=== PATIENT | female | born 1930 | race Caucasian/White ===

== ENCOUNTER 2017-04-15 19:46 | Emergency (ER) | payer OTHER ==
[~2017-04-15 19:46] MED LIST: MULTCAP2 OR
[2017-04-15 19:49] VITALS: BP 158/83; PULSE 79; RESP 20; TEMP 97.5; O2SAT 95
[2017-04-15] MEDS ORDERED: VITA200C3 PO (20:14)
[2017-04-15] MEDS ORDERED: CALC1TAB87 PO (20:14)
[2017-04-15] MEDS ORDERED: VITATAB43 PO (20:14)
[2017-04-15] MEDS ORDERED: ASPI81CH CHEW (20:14)
[2017-04-15] MEDS ORDERED: COQ150CA PO (20:14)
[2017-04-15] MEDS ORDERED: ALPR0.25 PO (20:14)
[2017-04-15] MEDS ORDERED: VITA100036 PO (20:14)
[2017-04-15] MEDS ORDERED: LISI10TA3 PO (20:14)
--- NOTE | 2017-04-15 21:26 | PD ---
HPI Chief Complaint: Abdominal Pain Time Seen by Provider: 21:19 Travel History International Travel<30 days: No Contact w/Intl Traveler<30days: No Traveled to known affect area: No History of Present Illness HPI The patient is an 86-year-old female that complains of pain slightly to the left of midline in the left lower quadrant. It started around 4 PM today. The pain is almost totally resolved now and the patient wants to go home. She denies any fever, nausea, vomiting or diarrhea. PFSH Past Medical History Anxiety: Yes Cancer: Yes (COLON WITH CHEMO TREATMENTS 1989) Chemotherapy: Yes Diminished Hearing: No Gastrointestinal Disorders: Yes (COLON CA IN 1995) Hypertension: Yes Influenza Vaccination: Yes Menopausal: Yes Past Surgical History Abdominal Surgery: Yes (COLON RESECTION LARGE AND SMALL BOWEL R/T CANCER) Cholecystectomy: Yes Other Surgery: Yes (FACIAL SURGERY R/T TRAUMA) Social History Alcohol Use: Yes (SOC) Tobacco Use: No (QUIT IN 1975) Substance Use: No Allergies-Medications (Allergen,Severity, Reaction): Coded Allergies: paroxetine (Unverified Allergy, Severe, GI DISTRESS, 03/29/17) sertraline (Unverified Allergy, Severe, GI DISTRESS, 03/29/17) Reported Meds & Prescriptions Reported Meds & Active Scripts Active Reported Calcium 600 with Vitamin D (Calcium Carbonate-Cholecalciferol) 600-400 mg-Unit Tab 600 Tab PO DAILY Coq10 (Coenzyme Q10 (Ubidecarenone)) 50 Mg Cap 50 Mg PO DAILY Vitamin E 200 Unit Cap 400 Units PO DAILY Vitamin W67-Gqkhg Acid (Cobalamine Combinations) 500-400 Mcg Tab 1 Tab PO DAILY Vitamin D3 (Cholecalciferol) 1,000 Unit Cap 1,000 Units PO DAILY Aspirin 81 Mg Chew 81 Mg CHEW DAILY Alprazolam 0.25 Mg Tab 0.25 Mg PO Q4H PRN Lisinopril 10 Mg Tab 10 Mg PO DAILY Review of Systems Except as stated in HPI: all other systems reviewed are Neg Physical Exam Narrative GENERAL: The patient is alert, oriented 3 in no apparent distress. Her vital signs show blood pressure 158/83 but are otherwise normal. SKIN: Focused skin assessment warm/dry. HEAD: Atraumatic. Normocephalic. EYES: Pupils equal and round. No scleral icterus. No injection or drainage. ENT: No nasal bleeding or discharge. Mucous membranes pink and moist. NECK: Trachea midline. No JVD. CARDIOVASCULAR: Regular rate and rhythm. No murmur appreciated. RESPIRATORY: No accessory muscle use. Clear to auscultation. Breath sounds equal bilaterally. GASTROINTESTINAL: Abdomen soft, with minimal discomfort to direct palpation slightly to the left of midline in the left lower quadrant, nondistended. Hepatic and splenic margins not palpable. No guarding or rebound is present. MUSCULOSKELETAL: No obvious deformities. No clubbing. No cyanosis. No edema. NEUROLOGICAL: Awake and alert. No obvious cranial nerve deficits. Motor grossly within normal limits. Normal speech. PSYCHIATRIC: Appropriate mood and affect; insight and judgment normal. Data Data Last Documented VS Vital Signs Date Time Temp Pulse Resp B/P (MAP) Pulse Ox O2 Delivery O2 Flow Rate FiO2 04/15/17 20:14 20 04/15/17 19:49 97.5 79 158/83 (108) 95 MDM Medical Decision Making Medical Screen Exam Complete: Yes Emergency Medical Condition: Yes Medical Record Reviewed: Yes Differential Diagnosis Intestinal colic, abdominal pain etiology undetermined, abdominal pain resolved , small bowel obstruction-unlikely, diverticulitis Narrative Course The patient wants to go home. She was offered a workup with CAT scan, blood work but she declined and says she wants to go home now because she feels so much better. Diagnosis Primary Impression: Abdominal pain of unknown etiology Additional Instructions: As we discussed, return immediately should you get a recurrent severe abdominal pain. This is particularly true if you get nausea/vomiting. Disposition: 01 DISCHARGE HOME Condition: Stable Juwan Lea MD Apr 15, 2017 21:25
[2017-04-15 21:37] VITALS: BP 123/71
== END 2017-04-15 21:39 | disposition home or self-care (01) ==
LOC: PHED 19:46
DX: R10.32 Left lower quadrant pain (principal); I10 Essential (primary) hypertension; Z85.038 Personal history of other malignant neoplasm of large intestine; Z86.59 Personal history of other mental and behavioral disorders
CPT/HCPCS: 99282

== ENCOUNTER 2017-10-16 20:40 | Inpatient (IN) | payer OTHER, MEDICARE ==
[~2017-10-16] VITALS: Ht 165.1 cm; Wt 70.4 kg
[~2017-10-16 20:40] MED LIST changes: +ALPR0.25 PO; +ASPI-516 CHEW; +CALC1TAB87 PO; +CHOL10008 PO; +COQ150CA PO; +LISI10TA3 PO; -MULTCAP2 OR; +VITA200C3 PO; +VITATAB43 PO
[2017-10-16 20:54] VITALS: BP 149/72; PULSE 71; RESP 18; TEMP 97.7; O2SAT 98
[2017-10-16] MEDS ORDERED: ASPI-516 CHEW (21:06)
[2017-10-16] MEDS ORDERED: SODIUM CHLORIDE 0.9% FLUSH 10 ML FLUSH IV FLUSH PRN (21:15)
[2017-10-16] MEDS ORDERED: MORPHINE SULFATE 4 MG/ML INJ IV PUSH ONE (21:15)
[2017-10-16] MEDS ORDERED: ONDANSETRON HCL 4 MG/2 ML VIAL IVP ONE (21:15)
[2017-10-16] MEDS ORDERED: LIDOCAINE VISCOUS 2% SOLN 15 ML UDC PO ONE (21:15)
[2017-10-16] MEDS ORDERED: ALUMINUM/MAGNESIUM/SIMETH 30 ML CUP PO ONE (21:15)
[2017-10-16] MEDS ORDERED: PANTOPRAZOLE SODIUM 40 MG VIAL IVP ONE (21:15)
[2017-10-16 21:27] LABS: AUTOMATED NEUTROPHIL # 7.9 TH/MM3 (1.8-7.7); BASOPHIL % 0.3 % (0.0-2.0); EOSINOPHIL % 0.4 % (0.0-4.0); HEMATOCRIT 39.7 % (35.0-46.0); HEMOGLOBIN 13.6 GM/DL (11.6-15.3); LYMPHOCYTE # 0.8 TH/MM3 (1.0-4.8); MEAN CELL VOLUME 95.5 FL (80.0-100.0); MEAN CORPUSCULAR HEMOGLOBIN 32.7 PG (27.0-34.0); MEAN CORPUSCULAR HGB CONC 34.3 % (32.0-36.0); MEAN PLATELET VOLUME 7.3 FL (7.0-11.0); MONO % 4.6 % (0.0-8.0); MONOCYTE # 0.4 TH/MM3 (0-0.9); NEUT % 85.7 % (16.0-70.0); PLATELET COUNT 243 TH/MM3 (150-450); RED BLOOD COUNT 4.16 MIL/MM3 (4.00-5.30); RED CELL DISTRIBUTION WIDTH 13.1 % (11.6-17.2); WHITE BLOOD COUNT 9.1 TH/MM3 (4.0-11.0)
[2017-10-16 21:30] VITALS: O2SAT 96
[2017-10-16 21:31] LABS: CHLORIDE 102 MEQ/L (98-107); SODIUM (NA) 137 MEQ/L (136-145)
[2017-10-16 21:34] LABS: CALCIUM 8.9 MG/DL (8.5-10.1)
[2017-10-16 21:35] LABS: BICARBONATE 27.9 MEQ/L (21.0-32.0); BLOOD UREA NITROGEN 14 MG/DL (7-18); GLUCOSE,RANDOM 112 MG/DL (74-106)
[2017-10-16 21:38] LABS: ALT (GPT) 17 U/L (10-53); AST (GOT) 19 U/L (15-37); CREATININE 0.88 MG/DL (0.50-1.00); GLOMERULAR FILTRATION RATE 61 ML/MIN (>89)
[2017-10-16 21:39] LABS: TOTAL BILIRUBIN ADULT 0.4 MG/DL (0.2-1.0); TOTAL PROTEIN 7.6 GM/DL (6.4-8.2)
[2017-10-16 21:40] LABS: ALKALINE PHOSPHATASE 96 U/L (45-117)
[2017-10-16 22:52] VITALS: BP 138/84; PULSE 73; RESP 16; O2SAT 95
[2017-10-16] MEDS ORDERED: IOHEXOL 350 MG/ML 10 ML VIAL (for RAD DIAG) IVCONTRAST ONE (22:55)
[2017-10-16 23:10] LABS: BILIRUBIN, URINE NEG (NEG); BLOOD, URINE TRACE (NEG); GLUCOSE,URINE NEG (NEG); KETONE, URINE NEG (NEG); NITRITE,URINE NEG (NEG); PH, URINE 5.5 (5.0-8.5); URINE COLOR YELLOW (YELLW/STRAW); URINE LEUKOCYTE ESTERASE NEG (NEG)
--- NOTE | 2017-10-16 23:10 | RADRPT ---
EXAM DATE/TIME: 10/16/2017 22:04 [facility] COMPARISON: No previous studies available for comparison. INDICATIONS : Evaluate for dissection. Chest pain. IV CONTRAST: 100 cc Omnipaque 350 (iohexol) IV RADIATION DOSE: 16.42 CTDIvol (mGy) MEDICAL HISTORY : Hypertension. Carcinoma, colon. SURGICAL HISTORY : Colon resection. ENCOUNTER: Initial ACUITY: 1 day PAIN SCALE: 10/10 LOCATION: chest Abdomen TECHNIQUE: Volumetric scanning was performed using a multi-row detector CT scanner. The data was post processed with a variety of visualization algorithms including full volume maximum intensity projection, multi -planar sliding thin slab reformation, curved planar reformation, and surface rendering techniques. Using automated exposure control and adjustment of the mA and/or kV according to patient size, radiat ion dose was kept as low as reasonably achievable to obtain optimal diagnostic quality images. DICOM format image data is available electronically for review and comparison. FINDINGS: LUNGS: There is no consolidation or pneumothorax. There is mild to moderate emphysema. No pleural fluid is p resent. MEDIASTINUM: The heart demonstrate no acute finding. There is coronary artery calcification. No lymphadenopathy is visualized. ABDOMEN: The liver demonstrates no focal lesion. There is mild intra-and extrahepatic bile duct dilatation thi s patient post cholecystectomy with clips in the gallbladder fossa. The adrenal glands, kidneys, sple en, and pancreas demonstrate no acute finding. There are small low-density lesions in the kidneys clive t are to small to characterize. Stomach is within normal limits. Degenerative is mildly dilated measu ring up to 3.3 cm with decompressed ileum. Terminal ileum and appendix are normal. There is colonic d iverticulosis. A small volume of free fluid is present within the pelvis. There is no free crit intra peritoneal air. Uterus demonstrates no acute finding. Urinary bladder demonstrates no abnormality. PELVIS: Pelvic structures demonstrate no acute finding. 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 Descending thoracic aorta is very tortuous wit h moderate atherosclerotic disease. No aneurysm is present. ABDOMINAL AORTA: The abdominal aorta demonstrates moderate to severe atherosclerotic disease and is tortuous and ectat ic measuring up to 3 cm. Major branches are patent. No aneurysm or dissection is present. PELVIC VESSELS: The internal iliac and external iliac vessels are patent without aneurysm or stenosis. CONCLUSION: 1. No dissection is present. 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 Aorta has a very tortuous course a nd is ectatic throughout with [id number] atherosclerotic disease. 2. There is mildly dilated jejunum and decompressed ileum. A specific transition point is not identif ied but is somewhere in the upper mid pelvis. There is no clinical history provided to suggest small bowel obstruction but suggest correlating with the clinical history. There is also a small volume of free fluid in the pelvis. Sven Geller MD on October 16, 2017 at 22:59 Board Certified Radiologist. This report was verified electronically.
[2017-10-16 23:26] LABS: SQUAMOUS EPITHELIAL CELL URINE 0-5 /hpf (0-5)
--- NOTE | 2017-10-17 | PD ---
HPI . GI complaint Chief Complaint: GI Complaint Time Seen by Provider: 20:58 Travel History International Travel<30 days: No Contact w/Intl Traveler<30days: No Traveled to known affect area: No History of Present Illness HPI A 7-year-old female with sudden onset low epigastric pain sharp constant and severe not radiating to the back or otherwise, no associated nausea vomiting, no diarrhea no recent melena or hematochezia, and no shortness of breath. Patient denies any chest pain or palpitations. Patient has history of having colon cancer status post resection of 36 cm of large bowel with reanastomosis with otherwise no issues and negative follow-up afterwards. Patient has not had any weight loss. PFSH Past Medical History Narrative Medical Past medical history reviewed Anxiety: Yes Cancer: Yes (COLON WITH CHEMO TREATMENTS 1989) Chemotherapy: Yes Diminished Hearing: No Gastrointestinal Disorders: Yes (COLON CA IN 1995) Hypertension: Yes Tetanus Vaccination: > 5 Years Influenza Vaccination: No Menopausal: Yes Past Surgical History Abdominal Surgery: Yes (COLON RESECTION LARGE AND SMALL BOWEL R/T CANCER) Cholecystectomy: Yes Other Surgery: Yes (FACIAL SURGERY R/T TRAUMA) Social History Alcohol Use: Yes (SOC) Tobacco Use: No (QUIT IN 1975) Substance Use: No Allergies-Medications (Allergen,Severity, Reaction): Coded Allergies: paroxetine (Unverified Allergy, Severe, GI DISTRESS, 10/16/17) sertraline (Unverified Allergy, Severe, GI DISTRESS, 10/16/17) Reported Meds & Prescriptions Reported Meds & Active Scripts Active Reported Aspirin 81 Mg Chew 81 Mg CHEW DAILY Calcium 600 with Vitamin D (Calcium Carbonate-Cholecalciferol) 600-400 mg-Unit Tab 600 Tab PO DAILY Coq10 (Coenzyme Q10 (Ubidecarenone)) 50 Mg Cap 50 Mg PO DAILY Vitamin E 200 Unit Cap 400 Units PO DAILY Vitamin T23-Odckb Acid (Cobalamine Combinations) 500-400 Mcg Tab 1 Tab PO DAILY Vitamin D3 (Cholecalciferol) 1,000 Unit Cap 1,000 Units PO DAILY Alprazolam 0.25 Mg Tab 0.25 Mg PO Q4H PRN Lisinopril 10 Mg Tab 10 Mg PO DAILY Narrative Medication Allergies and medications reviewed Review of Systems Except as stated in HPI: all other systems reviewed are Neg General / Constitutional: No: Fever Eyes: No: Visual changes HENT: No: Headaches Cardiovascular: No: Chest Pain or Discomfort Respiratory: No: Shortness of Breath Gastrointestinal: Positive: Abdominal Pain, No: Nausea, Vomiting, Hematemesis, Hematochezia Genitourinary: No: Urgency, Frequency, Dysuria, Hematuria, Flank Pain Musculoskeletal: No: Pain Skin: No Rash Neurologic: No: Weakness Psychiatric: No: Depression Endocrine: No: Polydipsia Hematologic/Lymphatic: No: Easy Bruising Physical Exam Narrative GENERAL: Awake and alert and oriented 3, patient is uncomfortable appearing but otherwise no acute distress vital signs afebrile normal in state SKIN: Warm and dry. Color is normal diaphoresis and pallor HEAD: Atraumatic. Normocephalic. EYES: Pupils equal and round. No scleral icterus. No injection or drainage. ENT: No nasal bleeding or discharge. Mucous membranes pink and moist. NECK: Trachea midline. No JVD. Supple nontender full range motion CARDIOVASCULAR: Regular rate and rhythm. S1-S2 no murmurs rubs gallops RESPIRATORY: No accessory muscle use. Clear to auscultation. Breath sounds equal bilaterally. GASTROINTESTINAL: Abdomen soft,-tender in periumbilical area mostly superiorly. No rebound or guarding, nondistended. Hepatic and splenic margins not palpable. MUSCULOSKELETAL: Extremities without clubbing, cyanosis, or edema. No obvious deformities. NEUROLOGICAL: Awake and alert. No obvious cranial nerve deficits. Motor grossly within normal limits. Five out of 5 muscle strength in the arms and legs. Normal speech. PSYCHIATRIC: Appropriate mood and affect; insight and judgment normal. Data Data Last Documented VS Vital Signs Date Time Temp Pulse Resp B/P (MAP) Pulse Ox O2 Delivery O2 Flow Rate FiO2 10/16/17 22:52 73 16 138/84 (102) 95 Room Air 10/16/17 20:54 97.7 Orders Orders Complete Blood Count With Diff (10/16/17 21:08) Comprehensive Metabolic Panel (10/16/17 21:08) Lipase (10/16/17 21:08) Lactic Acid (10/16/17 21:08) Prothrombin Time / Inr (Pt) (10/16/17 21:08) Act Partial Throm Time (Ptt) (10/16/17 21:08) Urinalysis - C+S If Indicated (10/16/17 21:08) Iv Access Insert/Monitor (10/16/17 21:08) Ecg Monitoring (10/16/17 21:08) Oximetry (10/16/17 21:08) Morphine Inj (Morphine Inj) (10/16/17 21:15) Ondansetron Inj (Zofran Inj) (10/16/17 21:15) Pantoprazole Inj (Protonix Inj) (10/16/17 21:15) Sodium Chloride 0.9% Flush (Ns Flush) (10/16/17 21:15) Electrocardiogram (10/16/17 21:08) Al-Mag Hy-Si 40-40-4 Mg/Ml Liq (Mag-Al P (10/16/17 21:15) Lidocaine 2% Viscous (Xylocaine 2% Visco (10/16/17 21:15) Cta Thor Abd Aorta W Iv C W3d (10/16/17 ) D-Dimer (10/16/17 21:40) Iohexol 350 Inj (Omnipaque 350 Inj) (10/16/17 22:55) Admit Order (Ed Use Only) (10/16/17 23:49) Consult General Surgery (10/16/17 ) Lactic Acid (10/16/17 23:51) Labs Laboratory Tests Test 10/16/17 21:20 10/16/17 21:44 10/16/17 23:00 White Blood Count 9.1 TH/MM3 Red Blood Count 4.16 MIL/MM3 Hemoglobin 13.6 GM/DL Hematocrit 39.7 % Mean Corpuscular Volume 95.5 FL Mean Corpuscular Hemoglobin 32.7 PG Mean Corpuscular Hemoglobin Concent 34.3 % Red Cell Distribution Width 13.1 % Platelet Count 243 TH/MM3 Mean Platelet Volume 7.3 FL Neutrophils (%) (Auto) 85.7 % Lymphocytes (%) (Auto) 9.0 % Monocytes (%) (Auto) 4.6 % Eosinophils (%) (Auto) 0.4 % Basophils (%) (Auto) 0.3 % Neutrophils # (Auto) 7.9 TH/MM3 Lymphocytes # (Auto) 0.8 TH/MM3 Monocytes # (Auto) 0.4 TH/MM3 Eosinophils # (Auto) 0.0 TH/MM3 Basophils # (Auto) 0.0 TH/MM3 CBC Comment DIFF FINAL Differential Comment Prothrombin Time 10.0 SEC Prothromb Time International Ratio 1.0 RATIO Activated Partial Thromboplast Time 26.7 SEC D-Dimer Quantitative (PE/DVT) 1.54 MG/L FEU Blood Urea Nitrogen 14 MG/DL Creatinine 0.88 MG/DL Random Glucose 112 MG/DL Total Protein 7.6 GM/DL Albumin 4.0 GM/DL Calcium Level 8.9 MG/DL Alkaline Phosphatase 96 U/L Aspartate Amino Transf (AST/SGOT) 19 U/L Alanine Aminotransferase (ALT/SGPT) 17 U/L Total Bilirubin 0.4 MG/DL Sodium Level 137 MEQ/L Potassium Level 3.9 MEQ/L Chloride Level 102 MEQ/L Carbon Dioxide Level 27.9 MEQ/L Anion Gap 7 MEQ/L Estimat Glomerular Filtration Rate 61 ML/MIN Lipase 275 U/L Lactic Acid Level 1.4 mmol/L Urine Collection Type CLEAN CATCH Urine Color YELLOW Urine Turbidity CLEAR Urine pH 5.5 Urine Specific [place] LESS/EQUAL 1.005 Urine Protein NEG mg/dL Urine Glucose (UA) NEG mg/dL Urine Ketones NEG mg/dL Urine Occult Blood TRACE Urine Nitrite NEG Urine Bilirubin NEG Urine Urobilinogen 0.2 MG/DL Urine Leukocyte Esterase NEG Urine RBC 4-9 /hpf Urine Squamous Epithelial Cells 0-5 /hpf Microscopic Urinalysis Comment CULT NOT INDICATED MDM Medical Decision Making Medical Screen Exam Complete: Yes Emergency Medical Condition: Yes Medical Record Reviewed: Yes Differential Diagnosis Epigastric pain, aortic dissection/aneurysm, gastritis, peptic ulcer, bowel obstruction, duodenitis, choledocholithiasis Narrative Course Secondary to patient's nature of her sudden onset of pain in severity and location, patient had static creatinine performed at a CT angiogram of thoracic and abdominal aorta which was resulted as no acute aortic dissection, mild aneurysmal dilatation, probably chronic with calcific/atherosclerotic disease noted. Patient also has incidental notation of multiple loops of small bowel/ jejunum at 3.2-3.3 cm consistent with partial small bowel obstruction with possible lead point and normal-size are collapsed terminal ileum. There is no obvious acute changes patient's reanastomosis site. Patient laboratory examination here, patient has an elevated d-dimer of unclear etiology, possibly representing history of cancer versus acute thrombo-embolic process. Lactic acid were added to patient's laboratory examinations to be followed for unlikely but possible ischemic bowel. EKG normal sinus rhythm at 69 bpm nonischemic intervals otherwise normal. No history of atrial fibrillation. Case discussed with Socorro DENG from hospitalist service, care plan developed. Admission for observation and repeat radiographic examinations of patient's partial small bowel obstruction with surgical consult ordered for the morning. N.p.o. IV fluids. NG tube discussed that this juncture not necessary patient has no nausea vomiting, no dilated proximal small bowel stomach or duodenum. Diagnosis Primary Impression: Small bowel obstruction Admitting Information Admitting Physician Requests: Observation Condition: Stable Ramon Abraham MD Oct 17, 2017 00:00
[2017-10-17] MEDS ORDERED: SODIUM CHLORIDE 0.9% FLUSH 10 ML FLUSH IV FLUSH PRN (00:15)
[2017-10-17] MEDS ORDERED: NALOXONE HCL 0.4 MG/ML AMP IV PUSH PRN (00:15)
[2017-10-17 00:36] VITALS: BP 104/67
[2017-10-17] MEDS: SODIUM CHLOR 0.9% 1000 ML INJ 1,000 ML IV SCH ×3 (01:01→20:02)
[2017-10-17] MEDS ORDERED: MORPHINE SULFATE 4 MG/ML INJ IV PUSH PRN (03:30)
[2017-10-17] MEDS: MORPHINE SULFATE 2 MG/ML INJ IV PUSH PRN ×2 (03:41→11:54)
[2017-10-17] MEDS: ONDANSETRON HCL 4 MG/2 ML VIAL IVP PRN ×2 (03:53→11:54)
[2017-10-17 08:00] VITALS: BP 132/60; PULSE 64; RESP 16; TEMP 98.4; O2SAT 95
[2017-10-17] MEDS: SODIUM CHLORIDE 0.9% FLUSH 10 ML FLUSH IV FLUSH SCH ×2 (09:00→21:00)
--- NOTE | 2017-10-17 09:01 | PD.CONS ---
cc: Eddy Majano MD [facility] Service General Surgery Consult Requested By Dr. Abraham Reason for Consult Small bowel obstruction Primary Care Physician Vanessa Martin Do, MD History of Present Illness This is an 87 year old female with a past medical history of colon cancer and resection with primary anastomosis in the late . She developed severe acute onset of epigastric abdominal pain that she rates a 10/10. She denies any nausea or vomiting. She denies any sick contacts. She denies any recent travel. Denies use of oral anticoagulation. A CTA of the abdomen was completed which shows a mildly dilated jejunum and a decompressed ileum. A General Surgery consultation has been requested for evaluation of a small bowel obstruction. Review of Systems Constitutional: DENIES: Fatigue, Chills, Change in appetite Endocrine: DENIES: Polydipsia, Polyuria, Polyphagia Eyes: DENIES: Diplopia, Eye inflammation Ears, nose, mouth, throat: DENIES: Hearing loss Respiratory: DENIES: Cough Cardiovascular: DENIES: Chest pain Gastrointestinal: COMPLAINS OF: Abdominal pain, DENIES: Nausea, Vomiting Genitourinary: DENIES: Dysmenorrhea, Urinary incontinence Musculoskeletal: DENIES: Muscle aches Integumentary: DENIES: Abnormal pigmentation Hematologic/lymphatic: DENIES: Bruising Immunologic/allergic: DENIES: Eczema Neurologic: DENIES: Abnormal gait, Headache Psychiatric: DENIES: Confusion, Mood changes, Depression Past Family Social History Past Medical History Colon cancer Past Surgical History Colon resection with primary anastomosis for colon cancer in the late Laparoscopic cholecystectomy in 2006 Reported Medications Lisinopril Aspirin Xanax Calcium Vitamin B12 Vitamin D Vitamin E Coenzyme Q10 Allergies: Coded Allergies: paroxetine (Unverified Allergy, Severe, GI DISTRESS, 10/16/17) sertraline (Unverified Allergy, Severe, GI DISTRESS, 10/16/17) Active Ordered Medications Current Medications Medications (Trade) Dose Ordered Sig/Luiz Route Start Time Stop Time Status Last Admin Sodium Chloride 1,000 ml @ 100 mls/hr Q10H IV 10/17/17 00:02 10/17/17 01:52 (NS Flush) 2 ml UNSCH PRN IV FLUSH 10/17/17 00:15 (NS Flush) 2 ml BID IV FLUSH 10/17/17 09:00 (Zofran Inj) 4 mg Q6H PRN IVP 10/17/17 00:15 10/17/17 03:53 (Narcan Inj) 0.4 mg UNSCH PRN IV PUSH 10/17/17 00:15 (Morphine Inj) 2 mg Q3H PRN IV PUSH 10/17/17 03:30 10/17/17 03:41 (Morphine Inj) 4 mg Q3H PRN IV PUSH 10/17/17 03:30 Family History Noncontributory Social History Denies tobacco use + ETOH use--- not daily; socially with friends Denies illicit drug Lives by herself. Physical Exam Vital Signs Vital Signs Date Time Temp Pulse Resp B/P (MAP) Pulse Ox O2 Delivery O2 Flow Rate FiO2 10/17/17 08:00 98.4 64 16 132/60 (84) 95 10/17/17 00:36 77 16 104/67 (79) 96 10/16/17 22:52 73 16 138/84 (102) 95 Room Air 10/16/17 21:30 96 Room Air 10/16/17 21:29 16 10/16/17 20:54 97.7 71 18 149/72 (97) 98 Physical Exam GENERAL: Very pleasant 87 year old female resting in bed in no acute distress. SKIN: Warm and dry. HEAD: Atraumatic. Normocephalic. EYES: Pupils equal and round. No scleral icterus. No injection or drainage. ENT: No nasal bleeding or discharge. Mucous membranes pink and moist. NECK: Trachea midline. CARDIOVASCULAR: Regular rate and rhythm. RESPIRATORY: No accessory muscle use. Clear to auscultation. Breath sounds equal bilaterally. GASTROINTESTINAL: Abdomen soft, mildly distended. Mild tenderness with LLQ and RLQ tenderness with palpation. Well healed large transverse scar. Faint umbilical scar from laparoscopic surgery. MUSCULOSKELETAL: Extremities without clubbing, cyanosis, or edema. No obvious deformities. NEUROLOGICAL: Awake and alert. No obvious cranial nerve deficits. Motor grossly within normal limits. Five out of 5 muscle strength in the arms and legs. Normal speech. PSYCHIATRIC: Appropriate mood and affect; insight and judgment normal. Laboratory Laboratory Tests Test 10/16/17 21:20 10/16/17 21:44 10/16/17 23:00 10/17/17 00:09 White Blood Count 9.1 Red Blood Count 4.16 Hemoglobin 13.6 Hematocrit 39.7 Mean Corpuscular Volume 95.5 Mean Corpuscular Hemoglobin 32.7 Mean Corpuscular Hemoglobin Concent 34.3 Red Cell Distribution Width 13.1 Platelet Count 243 Mean Platelet Volume 7.3 Neutrophils (%) (Auto) 85.7 Lymphocytes (%) (Auto) 9.0 Monocytes (%) (Auto) 4.6 Eosinophils (%) (Auto) 0.4 Basophils (%) (Auto) 0.3 Neutrophils # (Auto) 7.9 Lymphocytes # (Auto) 0.8 Monocytes # (Auto) 0.4 Eosinophils # (Auto) 0.0 Basophils # (Auto) 0.0 CBC Comment DIFF FINAL Differential Comment Prothrombin Time 10.0 Prothromb Time International Ratio 1.0 Activated Partial Thromboplast Time 26.7 D-Dimer Quantitative (PE/DVT) 1.54 Blood Urea Nitrogen 14 Creatinine 0.88 Random Glucose 112 Total Protein 7.6 Albumin 4.0 Calcium Level 8.9 Alkaline Phosphatase 96 Aspartate Amino Transf (AST/SGOT) 19 Alanine Aminotransferase (ALT/SGPT) 17 Total Bilirubin 0.4 Sodium Level 137 Potassium Level 3.9 Chloride Level 102 Carbon Dioxide Level 27.9 Anion Gap 7 Estimat Glomerular Filtration Rate 61 Lipase 275 Lactic Acid Level 1.4 1.0 Urine Collection Type CLEAN CATCH Urine Color YELLOW Urine Turbidity CLEAR Urine pH 5.5 Urine Specific [place] LESS/EQUAL 1.005 Urine Protein NEG Urine Glucose (UA) NEG Urine Ketones NEG Urine Occult Blood TRACE Urine Nitrite NEG Urine Bilirubin NEG Urine Urobilinogen 0.2 Urine Leukocyte Esterase NEG Urine RBC 4-9 Urine Squamous Epithelial Cells 0-5 Microscopic Urinalysis Comment CULT NOT INDICATED Result Diagram: 10/16/17211910/16/172119 Imaging Last 48 hours Impressions Aorta CTA 10/16/17 0000 Signed Impressions: Service Date/Time: Monday, October 16, 2017 22:04 - CONCLUSION: 1. No dissection is present. 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 Aorta has a very tortuous course and is ectatic throughout with [id number] atherosclerotic disease. 2. There is mildly dilated jejunum and decompressed ileum. A specific transition point is not identified but is somewhere in the upper mid pelvis. There is no clinical history provided to suggest small bowel obstruction but suggest correlating with the clinical history. There is also a small volume of free fluid in the pelvis. Sven Geller MD Assessment and Plan Assessment and Plan 87 year old female with abdominal pain; SBO -NPO -No NGT needed unless persistent nausea or vomiting -KUB this AM -Will get Gastrografin enema today -Repeat labs in AM -Will attempt non operative treatment at this time -Thank you for this consult; We will continue to follow Attending Note - Dr. Majano Abdomen mildly distended; minimally tender Gastrografin enema simply shows diverticulosis; no strictures No hernias noted Will start on clears in AM, as she was nauseated and had some emesis after test this afternoon. Last colonoscopy was 5 yrs ago; doubt she needs another due to lack of findings on GE. The exam, history, and the medical decision-making described in the above note were completed with the assistance of the mid-level provider. I reviewed and agree with the findings presented. I attest that I had a [id number] encounter with the patient on the same day, and personally performed and documented my assessment and findings in the medical record. Discussed Condition With Dr. Melecio ABARCA Ms. Monica Conner/Medical Staff Services Coordinator ARNP Oct 17, 2017 09:01 Eddy Majano MD Oct 17, 2017 20:40
--- NOTE | 2017-10-17 11:39 | RADRPT ---
EXAM DATE/TIME: 10/17/2017 11:15 [place] COMPARISON: CTA THORACIC ABDOMINAL AORTA W 3D RECON, October 16, 2017, 22:04. INDICATIONS : Obstruction MEDICAL HISTORY : Hypertension. Carcinoma, colon SURGICAL HISTORY : Colon resection ENCOUNTER: Initial ACUITY: 2 days PAIN SCORE: 4/10 LOCATION: Abdomen FINDINGS: Supine and upright views of the abdomen were performed. Ring of surgical saira in the left para midline pelvis is characteristic of prior bowel surgery. Th ere also surgical clips in the right upper abdominal quadrant characteristic of prior cholecystectomy . A few dilated small bowel loops are identified in the left abdomen. There are few scattered air-flu id levels on the upright image but the pattern is nonspecific. Stool is identified predominately in the ascending and proximal descending portions of the colon. No pneumoperitoneum. Osseous structures are intact CONCLUSION: 1. Postsurgical changes characteristic of a prior distal bowel resection and cholecystectomy. 2. Mildly dilated bowel loops in the left abdomen with a few scattered air-fluid levels. Stool is see n in the colon Pattern is nonspecific a but could represent a low-grade, partial small bowel structur e in a postsurgical patient. Nakul Patel MD on October 17, 2017 at 11:32 Board Certified Radiologist. This report was verified electronically.
[2017-10-17 12:00] VITALS: BP 126/69; PULSE 63; RESP 16; TEMP 98.6; O2SAT 95
[2017-10-17] MEDS ORDERED: ALPRAZolam 0.25 MG TAB PO PRN (13:15)
--- NOTE | 2017-10-17 13:22 | HHI.HP ---
[facility] Vanessa Martin Do, MD Admission Diagnosis Partial Small Bowel Obstruction Diagnoses: Chief Complaint: Abdominal pain and nausea Travel History International Travel<30 Days: No Contact w/Intl Traveler <30 Da: No Traveled to Known Affected Are: No History of Present Illness This patient is a very pleasant 87-year-old female with a history of colon resection due to colon cancer some years ago. Patient has been in her usual state of health when she experienced acute episode of severe abdominal discomfort Which was sharp but nonradiating. It was associated with nausea but no vomiting. She had no intestinal diarrhea or melena or hematemesis. She has noted that the symptoms started shortly after she started some diclofenac which was given for arthritic pain. She since has stopped the diclofenac when she felt badly with it and then began having more intestinal symptoms. She did come to the emergency room and her abdominal discomfort was improved with IV morphine. Patient's been admitted for small bowel obstruction which is seen clinically as well as on imaging studies. Review of Systems Constitutional: DENIES: Diaphoretic episodes, Fatigue, Fever, Weight gain, Weight loss, Chills, Dizziness, Change in appetite, Night Sweats Endocrine: DENIES: Abnorml menstrual pattern, Heat/cold intolerance, Polydipsia , Polyuria, Polyphagia Eyes: DENIES: Blurred vision, Diplopia, Eye inflammation, Eye pain, Vision loss , Photosensitivity, Double Vision Ears, nose, mouth, throat: DENIES: Tinnitus, Hearing loss, Vertigo, Nasal discharge, Oral lesions, Throat pain, Hoarseness, Ear Pain, Running Nose, Epistaxis, Sinus Pain, Toothache, Odynophagia Respiratory: DENIES: Apneas, Cough, Snoring, Wheezing, Hemoptysis, Sputum production, Shortness of breath Cardiovascular: DENIES: Chest pain, Palpitations, Syncope, Dyspnea on Exertion , PND, Lower Extremity Edema, Orthopnea, Claudication Gastrointestinal: COMPLAINS OF: Abdominal pain, Anorexia, DENIES: Black stools , Bloody stools, Constipation, Diarrhea, Nausea, Vomiting, Difficulty Swallowing Genitourinary: DENIES: Abnormal vaginal bleeding, Dysmenorrhea, Dyspareunia, Sexual dysfunction, Urinary frequency, Urinary incontinence, Urgency, Hematuria , Dysuria, Nocturia, Vaginal discharge Musculoskeletal: COMPLAINS OF: Joint pain, DENIES: Muscle aches, Stiffness, Joint Swelling, Back pain, Neck pain Integumentary: DENIES: Abnormal pigmentation, Pruritus, Rash, Nail changes, Breast masses, Breast skin changes, Nipple discharge Hematologic/lymphatic: DENIES: Bruising, Lymphadenopathy Immunologic/allergic: DENIES: Eczema, Urticaria Neurologic: DENIES: Abnormal gait, Headache, Localized weakness, Paresthesias, Seizures, Speech Problems, Tremor, Poor Balance Psychiatric: DENIES: Anxiety, Confusion, Mood changes, Depression, Hallucinations, Agitation, Suicidal Ideation, Homicidal Ideation, Delusions Past Family Social History Past Medical History Hypertension Anxiety History of colon cancer Past Surgical History Status post colon resection and chemo Reported Medications Reviewed in the EMR, recently was started on diclofenac but discontinued because she had some dyspepsia Allergies: Coded Allergies: paroxetine (Unverified Allergy, Severe, GI DISTRESS, 10/16/17) sertraline (Unverified Allergy, Severe, GI DISTRESS, 10/16/17) Active Ordered Medications Reviewed in the EMR Family History Mother from a stroke, father's history is unknown Social History Quit tobacco over 40 years ago, alcohol socially, lives alone but is very active Physical Exam Vital Signs Vital Signs Date Time Temp Pulse Resp B/P (MAP) Pulse Ox O2 Delivery O2 Flow Rate FiO2 10/17/17 12:00 98.6 63 16 126/69 (88) 95 10/17/17 08:00 98.4 64 16 132/60 (84) 95 10/17/17 00:36 77 16 104/67 (79) 96 10/16/17 22:52 73 16 138/84 (102) 95 Room Air 10/16/17 21:30 96 Room Air 10/16/17 21:29 16 10/16/17 20:54 97.7 71 18 149/72 (97) 98 Physical Exam GENERAL: This is a well-nourished, well-developed patient, in no apparent distress. SKIN: No rashes, ecchymoses or lesions. Cool and dry. HEAD: Atraumatic. Normocephalic. No temporal or scalp tenderness. EYES: Pupils equal round and reactive. Extraocular motions intact. No scleral icterus. No injection or drainage. ENT: Nose without bleeding, purulent drainage or septal hematoma. Throat without erythema, tonsillar hypertrophy or exudate. Uvula midline. Airway patent. NECK: Trachea midline. No JVD or lymphadenopathy. Supple, nontender, no meningeal signs. CARDIOVASCULAR: Regular rate and rhythm without murmurs, gallops, or rubs. RESPIRATORY: Clear to auscultation. Breath sounds equal bilaterally. No wheezes , rales, or rhonchi. GASTROINTESTINAL: Abdomen soft, tender and mildly distended with hypoactive bowel sounds nded. No hepato-splenomegaly, or palpable masses. No guarding. MUSCULOSKELETAL: Extremities without clubbing, cyanosis, or edema. No joint tenderness, effusion, or edema noted. No calf tenderness. Negative Homans sign bilaterally. NEUROLOGICAL: Awake and alert. Cranial nerves II through XII intact. Motor and sensory grossly within normal limits. Five out of 5 muscle strength in all muscle groups. Normal speech. Laboratory Laboratory Tests Test 10/16/17 21:20 10/16/17 21:44 10/16/17 23:00 10/17/17 00:09 White Blood Count 9.1 Red Blood Count 4.16 Hemoglobin 13.6 Hematocrit 39.7 Mean Corpuscular Volume 95.5 Mean Corpuscular Hemoglobin 32.7 Mean Corpuscular Hemoglobin Concent 34.3 Red Cell Distribution Width 13.1 Platelet Count 243 Mean Platelet Volume 7.3 Neutrophils (%) (Auto) 85.7 Lymphocytes (%) (Auto) 9.0 Monocytes (%) (Auto) 4.6 Eosinophils (%) (Auto) 0.4 Basophils (%) (Auto) 0.3 Neutrophils # (Auto) 7.9 Lymphocytes # (Auto) 0.8 Monocytes # (Auto) 0.4 Eosinophils # (Auto) 0.0 Basophils # (Auto) 0.0 CBC Comment DIFF FINAL Differential Comment Prothrombin Time 10.0 Prothromb Time International Ratio 1.0 Activated Partial Thromboplast Time 26.7 D-Dimer Quantitative (PE/DVT) 1.54 Blood Urea Nitrogen 14 Creatinine 0.88 Random Glucose 112 Total Protein 7.6 Albumin 4.0 Calcium Level 8.9 Alkaline Phosphatase 96 Aspartate Amino Transf (AST/SGOT) 19 Alanine Aminotransferase (ALT/SGPT) 17 Total Bilirubin 0.4 Sodium Level 137 Potassium Level 3.9 Chloride Level 102 Carbon Dioxide Level 27.9 Anion Gap 7 Estimat Glomerular Filtration Rate 61 Lipase 275 Lactic Acid Level 1.4 1.0 Urine Collection Type CLEAN CATCH Urine Color YELLOW Urine Turbidity CLEAR Urine pH 5.5 Urine Specific [place] LESS/EQUAL 1.005 Urine Protein NEG Urine Glucose (UA) NEG Urine Ketones NEG Urine Occult Blood TRACE Urine Nitrite NEG Urine Bilirubin NEG Urine Urobilinogen 0.2 Urine Leukocyte Esterase NEG Urine RBC 4-9 Urine Squamous Epithelial Cells 0-5 Microscopic Urinalysis Comment CULT NOT INDICATED Result Diagram: 10/16/17211910/16/172119 Imaging Last Impressions Abdomen X-Ray 10/17/17 0736 Signed Impressions: Service Date/Time: Tuesday, October 17, 2017 11:15 - CONCLUSION: 1. Postsurgical changes characteristic of a prior distal bowel resection and cholecystectomy. 2. Mildly dilated bowel loops in the left abdomen with a few scattered air-fluid levels. Stool is seen in the colon Pattern is nonspecific a but could represent a low-grade, partial small bowel structure in a postsurgical patient. Nakul Patel MD Aorta CTA 10/16/17 0000 Signed Impressions: Service Date/Time: Monday, October 16, 2017 22:04 - CONCLUSION: 1. No dissection is present. 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 Aorta has a very tortuous course and is ectatic throughout with [id number] atherosclerotic disease. 2. There is mildly dilated jejunum and decompressed ileum. A specific transition point is not identified but is somewhere in the upper mid pelvis. There is no clinical history provided to suggest small bowel obstruction but suggest correlating with the clinical history. There is also a small volume of free fluid in the pelvis. Sven Geller MD Caprini VTE Risk Assessment Caprini VTE Risk Assessment: Mod/High Risk (score >= 2) Caprini Risk Assessment Model Point Value = 1 Point Value = 2 Point Value = 3 Point Value = 5 Age 41-60 Minor surgery BMI > 25 kg/m2 Swollen legs Varicose veins or History of unexplained or recurrent spontaneous Oral contraceptives or hormone replacement Sepsis (< 1 month) Serious lung disease, including pneumonia (< 1 month) Abnormal pulmonary function Acute myocardial infarction Congestive heart failure (< 1 month) History of inflammatory bowel disease Medical patient at bed rest Age 61-74 Arthroscopic surgery Major open surgery (> 45 min) Laparoscopic surgery (> 45 min) Malignancy Confined to bed (> 72 hours) Immobilizing plaster cast Central venous access Age >= 75 History of VTE Family history of VTE Factor V Leiden Prothrombin [id number] Lupus anticoagulant Anticardiolipin antibodies Elevated serum homocysteine Heparin-induced thrombocytopenia Other congenital or acquired thrombophilia Stroke (< 1 month) Elective arthroplasty Hip, pelvis, or leg fracture Acute spinal cord injury (< 1 month) Prophylaxis Regimen Total Risk Factor Score Risk Level Prophylaxis Regimen 0-1 Low Early ambulation 2 Moderate Order ONE of the following: *Sequential Compression Device (SCD) *Heparin 5000 units SQ BID 3-4 Higher Order ONE of the following medications: *Heparin 5000 units SQ TID *Enoxaparin/Lovenox 40 mg SQ daily (WT < 150 kg, CrCl > 30 mL/min) *Enoxaparin/Lovenox 30 mg SQ daily (WT < 150 kg, CrCl > 10-29 mL/min) *Enoxaparin/Lovenox 30 mg SQ BID (WT < 150 kg, CrCl > 30 mL/min) AND/OR *Sequential Compression Device (SCD) 5 or more Highest Order ONE of the following medications: *Heparin 5000 units SQ TID (Preferred with Epidurals) *Enoxaparin/Lovenox 40 mg SQ daily (WT < 150 kg, CrCl > 30 mL/min) *Enoxaparin/Lovenox 30 mg SQ daily (WT < 150 kg, CrCl > 10-29 mL/min) *Enoxaparin/Lovenox 30 mg SQ BID (WT < 150 kg, CrCl > 30 mL/min) AND *Sequential Compression Device (SCD) Assessment and Plan Problem List: (1) HTN (hypertension) ICD Code: I10 - Essential (primary) hypertension Plan: Continue home lisinopril (2) Small bowel obstruction ICD Code: K56.609 - Unspecified intestinal obstruction, unspecified as to partial versus complete obstruction Status: Acute Plan: continue n.p.o. except ice, follow-up a.m. x-ray General surgery consult appreciated Pain management with IV morphine (3) AAA (abdominal aortic aneurysm) ICD Code: I71.4 - Abdominal aortic aneurysm, without rupture Plan: Seen on imaging, patient is now aware and will need follow-up as an outpatient Assessment and Plan Discharge home pending return of bowel function Patient to see Dr. Mosley colorectal surgery Code Status full code Physician Certification 2 Midnight Certification Type: Admission for Inpatient Services Order for Inpatient Services The services are ordered in accordance with Medicare regulations or non- Medicare payer requirements, as applicable. In the case of services not specified as inpatient-only, they are appropriately provided as inpatient services in accordance with the 2-midnight benchmark. Estimated LOS (days): 3 3 days is the estimated time the patient will need to remain in the hospital, assuming treatment plan goals are met and no additional complications. Post-Hospital Plan: Home Tami Garcia MD Oct 17, 2017 13:22
[2017-10-17] MEDS: HEPARIN SODIUM - SQ 10,000 UNITS/ML VIAL SQ SCH ×2 (14:00→21:43)
[2017-10-17] MEDS ORDERED: DIATRIZOATE MEGLUM/DIATRIZOATE SOD 120 ML BTL (for RAD DIAG) RECTAL ONE (16:10)
[2017-10-17 20:00] VITALS: BP 129/67; PULSE 69; RESP 20; TEMP 99.5; O2SAT 94
[2017-10-18] VITALS: BP 127/68; PULSE 69; RESP 18; TEMP 98.1; O2SAT 96
[2017-10-18] MEDS: SODIUM CHLOR 0.9% 1000 ML INJ 1,000 ML IV SCH (04:23)
[2017-10-18] MEDS: HEPARIN SODIUM - SQ 10,000 UNITS/ML VIAL SQ SCH ×3 (05:49→23:04)
[2017-10-18 06:42] LABS: AUTOMATED NEUTROPHIL # 5.2 TH/MM3 (1.8-7.7); BASOPHIL % 0.1 % (0.0-2.0); EOSINOPHIL # 0.1 TH/MM3 (0-0.4); EOSINOPHIL % 1.5 % (0.0-4.0); HEMATOCRIT 34.1 % (35.0-46.0); HEMOGLOBIN 12.2 GM/DL (11.6-15.3); LYMPHOCYTE # 0.7 TH/MM3 (1.0-4.8); MEAN CELL VOLUME 96.1 FL (80.0-100.0); MEAN CORPUSCULAR HEMOGLOBIN 34.5 PG (27.0-34.0); MEAN CORPUSCULAR HGB CONC 35.9 % (32.0-36.0); MEAN PLATELET VOLUME 7.7 FL (7.0-11.0); MONO % 7.1 % (0.0-8.0); MONOCYTE # 0.5 TH/MM3 (0-0.9); NEUT % 80.3 % (16.0-70.0); PLATELET COUNT 204 TH/MM3 (150-450); RED BLOOD COUNT 3.55 MIL/MM3 (4.00-5.30); RED CELL DISTRIBUTION WIDTH 13.3 % (11.6-17.2); WHITE BLOOD COUNT 6.5 TH/MM3 (4.0-11.0)
[2017-10-18 07:16] LABS: BICARBONATE 27.9 MEQ/L (21.0-32.0); CALCIUM 8.2 MG/DL (8.5-10.1); CREATININE 0.84 MG/DL (0.50-1.00)
[2017-10-18 08:00] VITALS: BP 123/71; PULSE 67; RESP 16; TEMP 99; O2SAT 96
--- NOTE | 2017-10-18 08:07 | HHI.PR ---
cc: Ap Major MD Subjective Subjective Notes DAILY PROGRESS NOTE FOR SURGICAL ATTENDING, DR. AP MAJOR Resting in bed "I feel so much better than yesterday!" Objective Vitals/I&O Vital Signs Date Time Temp Pulse Resp B/P (MAP) Pulse Ox O2 Delivery O2 Flow Rate FiO2 10/18/17 00:00 98.1 69 18 127/68 (87) 96 10/16/17 22:52 Room Air Labs Laboratory Tests Test 10/18/17 06:00 White Blood Count 6.5 Red Blood Count 3.55 Hemoglobin 12.2 Hematocrit 34.1 Mean Corpuscular Volume 96.1 Mean Corpuscular Hemoglobin 34.5 Mean Corpuscular Hemoglobin Concent 35.9 Red Cell Distribution Width 13.3 Platelet Count 204 Mean Platelet Volume 7.7 Neutrophils (%) (Auto) 80.3 Lymphocytes (%) (Auto) 11.0 Monocytes (%) (Auto) 7.1 Eosinophils (%) (Auto) 1.5 Basophils (%) (Auto) 0.1 Neutrophils # (Auto) 5.2 Lymphocytes # (Auto) 0.7 Monocytes # (Auto) 0.5 Eosinophils # (Auto) 0.1 Basophils # (Auto) 0.0 CBC Comment DIFF FINAL Differential Comment Blood Urea Nitrogen 19 Creatinine 0.84 Random Glucose 101 Calcium Level 8.2 Sodium Level 142 Potassium Level 3.9 Chloride Level 108 Carbon Dioxide Level 27.9 Anion Gap 6 Estimat Glomerular Filtration Rate 64 Radiology Last Impressions Abdomen X-Ray 10/17/17 0736 Signed Impressions: Service Date/Time: Tuesday, October 17, 2017 11:15 - CONCLUSION: 1. Postsurgical changes characteristic of a prior distal bowel resection and cholecystectomy. 2. Mildly dilated bowel loops in the left abdomen with a few scattered air-fluid levels. Stool is seen in the colon Pattern is nonspecific a but could represent a low-grade, partial small bowel structure in a postsurgical patient. Nakul Patel MD Aorta CTA 10/16/17 0000 Signed Impressions: Service Date/Time: Monday, October 16, 2017 22:04 - CONCLUSION: 1. No dissection is present. 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 Aorta has a very tortuous course and is ectatic throughout with mgsqvcaf-qb-rifjvf atherosclerotic disease. 2. There is mildly dilated jejunum and decompressed ileum. A specific transition point is not identified but is somewhere in the upper mid pelvis. There is no clinical history provided to suggest small bowel obstruction but suggest correlating with the clinical history. There is also a small volume of free fluid in the pelvis. Sven Geller MD Cardiovascular: Regular Lungs: Clear Abdomen: Non-distended, Non-tender Extremities: No edema A/P Problem List: (1) Ileus ICD Codes: K56.7 - Ileus, unspecified Status: Chronic (2) AAA (abdominal aortic aneurysm) ICD Codes: I71.4 - Abdominal aortic aneurysm, without rupture (3) HTN (hypertension) ICD Codes: I10 - Essential (primary) hypertension Status: Chronic Assessment and Plan 87 year old female with abdominal pain; SBO -s/p Gastrografin enema -+BM -Abdominal exam benign -Start sips of clears liquids this AM -Will continue non operative treatment Attending Statement NOTE FOR SURGICAL ATTENDING, DR. AP MAJOR Patient seen and examined Abdomen soft Had 4 bowel movements this morning Tolerating diet Anticipate discharge next 24-48 hours I agree with above assessment and plan. The exam, history, and the medical decision-making described in the above note were completed with the assistance of the mid-level provider. I reviewed and agree with the findings presented. I attest that I had a zyjk-yq-wksm encounter with the patient on the same day, and personally performed and documented my assessment and findings in the medical record. The following services were provided during this hospital visit: Chart data review, vital sign assessments/reviewing monitor data Review of consultations notes if present. Medication orders/review and/or management Ordering and/or reviewing lab tests Ordering and/or interpreting/reviewing x-rays and/or diagnostic studies Care of the patient and discussion of the patient with the care team Documentation time To help prompt me to consider important information that might be impacting today's encounter and assessment, information from prior notes written by myself or my colleagues may have been "brought forward/copy and pasted" into today's note. Monica Martinez/First Yesika CASH Oct 18, 2017 08:07 Ap Major MD Oct 18, 2017 19:18
--- NOTE | 2017-10-18 09:44 | HHI.PR ---
Subjective Remarks Follow-up abdominal pain small bowel obstruction. Patient seen and examined, walking from bathroom to bed. Denies any distress overnight. Has been tolerating clear liquids, denies any nausea this morning. One bout of vomiting overnight. Positive bowel movement today. Pain controlled. Objective Vitals Vital Signs Date Time Temp Pulse Resp B/P (MAP) Pulse Ox O2 Delivery O2 Flow Rate FiO2 10/18/17 00:00 98.1 69 18 127/68 (87) 96 10/17/17 20:00 99.5 69 20 129/67 (87) 94 10/17/17 12:00 98.6 63 16 126/69 (88) 95 10/17/17 11:59 20 I/O 10/17/17 10/17/17 10/17/17 10/18/17 10/18/17 10/18/17 07:00 15:00 23:00 07:00 15:00 23:00 Intake Total 362 ml 0 ml 1720 ml Balance 362 ml 0 ml 1720 ml Intake Oral 0 ml 720 ml IV Total 362 ml 1000 ml # Voids 1 3 # Bowel Movements 1 0 Result Diagram: 10/18/17 0600 10/18/17 0600 Imaging Last Impressions Abdomen X-Ray 10/17/17 0736 Signed Impressions: Service Date/Time: Tuesday, October 17, 2017 11:15 - CONCLUSION: 1. Postsurgical changes characteristic of a prior distal bowel resection and cholecystectomy. 2. Mildly dilated bowel loops in the left abdomen with a few scattered air-fluid levels. Stool is seen in the colon Pattern is nonspecific a but could represent a low-grade, partial small bowel structure in a postsurgical patient. Nakul Patel MD Aorta CTA 10/16/17 0000 Signed Impressions: Service Date/Time: Monday, October 16, 2017 22:04 - CONCLUSION: 1. No dissection is present. 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 Aorta has a very tortuous course and is ectatic throughout with hklkaxop-te-egwhql atherosclerotic disease. 2. There is mildly dilated jejunum and decompressed ileum. A specific transition point is not identified but is somewhere in the upper mid pelvis. There is no clinical history provided to suggest small bowel obstruction but suggest correlating with the clinical history. There is also a small volume of free fluid in the pelvis. Sven Geller MD Objective Remarks GENERAL: Well-developed, well-nourished patient in NAD. SKIN: Warm and dry. No rash. HEAD: Normocephalic. Atraumatic. EYES: Pupils equal and round. No scleral icterus. No injection or drainage. ENT: No nasal bleeding or discharge. Mucous membranes pink and moist. NECK: Supple. Trachea midline. CARDIOVASCULAR: Regular rate and rhythm. S1, S2 noted. No murmur appreciated. RESPIRATORY: No accessory muscle use. Clear to auscultation. Breath sounds equal bilaterally. GASTROINTESTINAL: Abdomen soft, non-tender, nondistended. Normoactive bowel sounds x4. MUSCULOSKELETAL: No obvious deformities. Extremities without clubbing, cyanosis , or edema. NEUROLOGICAL: Awake and alert. No obvious cranial nerve deficits. Motor grossly within normal limits. 5/5 muscle strength in bilateral upper and lower extremities. Normal speech. A/P Problem List: (1) HTN (hypertension) ICD Code: I10 - Essential (primary) hypertension Plan: Continue home lisinopril (2) Small bowel obstruction ICD Code: K56.609 - Unspecified intestinal obstruction, unspecified as to partial versus complete obstruction Status: Acute Plan: Okay for clear liquids today. Monitor response. Control nausea, Zofran available. General surgery consult appreciated in following. We will continue nonoperative treatment for now. Positive bowel movement. Pain management with IV morphine. (3) AAA (abdominal aortic aneurysm) ICD Code: I71.4 - Abdominal aortic aneurysm, without rupture Plan: Seen on imaging, patient is now aware and will need follow-up as an outpatient. DVT prophylaxis: Heparin. Heidy Lopez Oct 18, 2017 09:44
[2017-10-18] MEDS: SODIUM CHLORIDE 0.9% FLUSH 10 ML FLUSH IV FLUSH SCH ×2 (09:56→23:05)
[2017-10-18] MEDS: LISINOPRIL 10 MG TAB PO SCH (09:56)
[2017-10-18 12:00] VITALS: BP 135/79; PULSE 76; RESP 18; TEMP 96.2; O2SAT 95
[2017-10-18] MEDS: ONDANSETRON HCL 4 MG/2 ML VIAL IVP PRN (14:52)
[2017-10-18 16:00] VITALS: BP_SYST 129; BP_SYST 130; BP_DIAS 76; BP_DIAS 83; PULSE 71; RESP 16; TEMP 98.5; O2SAT 95; O2SAT 96
[2017-10-18 20:00] VITALS: BP 123/64; PULSE 65; RESP 20; TEMP 98.1; O2SAT 94
[2017-10-19] VITALS: BP 106/59; PULSE 59; RESP 20; TEMP 97.9; O2SAT 94
[2017-10-19] MEDS: HEPARIN SODIUM - SQ 10,000 UNITS/ML VIAL SQ SCH (05:19)
--- NOTE | 2017-10-19 07:48 | HHI.DCPOC ---
Discharge Care Plan Diagnosis: (1) Small bowel obstruction (2) Ileus (3) HTN (hypertension) Goals to Promote Your Health * To prevent worsening of your condition and complications * To maintain your health at the optimal level Directions to Meet Your Goals Take your medications as prescribed Follow your dietary instruction Follow activity as directed Keep your appointments as scheduled Take your immunizations and boosters as scheduled If your symptoms worsen call your PCP, if no PCP go to Urgent Care Center or Emergency Room Smoking is Dangerous to Your Health. Avoid second hand smoke Call the 24-hour hour crisis hotline for domestic abuse at Heidy Lopez Oct 19, 2017 07:48
--- NOTE | 2017-10-19 07:48 | HHI.DS ---
Discharge Summary Admission Date Oct 17, 2017 at 00:07 Admitting Diagnosis Partial Small Bowel Obstruction (1) HTN (hypertension) ICD Codes: I10 - Essential (primary) hypertension Status: Chronic (2) Small bowel obstruction ICD Codes: K56.609 - Unspecified intestinal obstruction, unspecified as to partial versus complete obstruction Status: Acute (3) AAA (abdominal aortic aneurysm) ICD Codes: I71.4 - Abdominal aortic aneurysm, without rupture CBC/BMP: 10/18/17 0600 10/18/17 0600 Significant Findings Laboratory Tests Test 10/16/17 21:20 10/16/17 21:44 10/16/17 23:00 10/17/17 00:09 Neutrophils (%) (Auto) 85.7 % (16.0-70.0) Neutrophils # (Auto) 7.9 TH/MM3 (1.8-7.7) Lymphocytes # (Auto) 0.8 TH/MM3 (1.0-4.8) D-Dimer Quantitative (PE/DVT) 1.54 MG/L FEU (0.00-0.50) Random Glucose 112 MG/DL (74-106) Estimat Glomerular Filtration Rate 61 ML/MIN (>89) Urine RBC 4-9 /hpf (0-3) Test 10/18/17 06:00 Red Blood Count 3.55 MIL/MM3 (4.00-5.30) Hematocrit 34.1 % (35.0-46.0) Mean Corpuscular Hemoglobin 34.5 PG (27.0-34.0) Neutrophils (%) (Auto) 80.3 % (16.0-70.0) Lymphocytes # (Auto) 0.7 TH/MM3 (1.0-4.8) Blood Urea Nitrogen 19 MG/DL (7-18) Calcium Level 8.2 MG/DL (8.5-10.1) Chloride Level 108 MEQ/L (98-107) Estimat Glomerular Filtration Rate 64 ML/MIN (>89) Heidy Lopez Oct 19, 2017 07:48
[2017-10-19 08:00] VITALS: BP 119/77; PULSE 58; RESP 16; TEMP 97.2; O2SAT 95
--- NOTE | 2017-10-19 08:24 | HHI.PR ---
cc: Eddy Majano MD Subjective Subjective Notes Resting in bed Ready to go home Feels strong Objective Vitals/I&O Vital Signs Date Time Temp Pulse Resp B/P (MAP) Pulse Ox O2 Delivery O2 Flow Rate FiO2 10/19/17 00:00 97.9 59 20 106/59 (75) 94 10/16/17 22:52 Room Air Radiology Last Impressions Abdomen X-Ray 10/17/17 0736 Signed Impressions: Service Date/Time: Tuesday, October 17, 2017 11:15 - CONCLUSION: 1. Postsurgical changes characteristic of a prior distal bowel resection and cholecystectomy. 2. Mildly dilated bowel loops in the left abdomen with a few scattered air-fluid levels. Stool is seen in the colon Pattern is nonspecific a but could represent a low-grade, partial small bowel structure in a postsurgical patient. Nakul Patel MD Aorta CTA 10/16/17 0000 Signed Impressions: Service Date/Time: Monday, October 16, 2017 22:04 - CONCLUSION: 1. No dissection is present. 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 Aorta has a very tortuous course and is ectatic throughout with afrcxaql-[id number]-gsclyl atherosclerotic disease. 2. There is mildly dilated jejunum and decompressed ileum. A specific transition point is not identified but is somewhere in the upper mid pelvis. There is no clinical history provided to suggest small bowel obstruction but suggest correlating with the clinical history. There is also a small volume of free fluid in the pelvis. Sven Geller MD Cardiovascular: Regular Lungs: Clear Abdomen: Non-distended, Non-tender Extremities: No edema A/P Problem List: (1) Ileus ICD Codes: K56.7 - Ileus, unspecified Status: Chronic (2) AAA (abdominal aortic aneurysm) ICD Codes: I71.4 - Abdominal aortic aneurysm, without rupture (3) HTN (hypertension) ICD Codes: I10 - Essential (primary) hypertension Status: Chronic Assessment and Plan 87 year old female with abdominal pain; SBO -s/p Gastrografin enema -+BM -Abdominal exam continues to be benign -Tolerating regular diet -GS clear for DC -Follow up with Dr. Majano next week---- she will make appointment once she gets home Attending Note - Dr. Majano Abdomen benign Will recheck next week; ok for discharge The exam, history, and the medical decision-making described in the above note were completed with the assistance of the mid-level provider. I reviewed and agree with the findings presented. I attest that I had a [id number] encounter with the patient on the same day, and personally performed and documented my assessment and findings in the medical record. Monica Martinez/First Yesika CASH Oct 19, 2017 08:24 Eddy Majano MD Oct 19, 2017 13:36
[2017-10-19] MEDS: LISINOPRIL 10 MG TAB PO SCH (09:00)
[2017-10-19] MEDS: SODIUM CHLORIDE 0.9% FLUSH 10 ML FLUSH IV FLUSH SCH (09:00)
--- NOTE | 2017-10-19 13:33 | RADRPT ---
EXAM DATE/TIME: 10/17/2017 15:02 [facility] COMPARISON: No previous studies available for comparison. INDICATIONS : Pain in lower abdomen for 2 days, constipation, evaluate for obstruction FLUORO TIME: 3.0 minutes IMAGE COUNT: 11 CONTRAST: 1. [facility] MEDICAL HISTORY : Hypertension. Carcinoma, colon. SURGICAL HISTORY : Colon resection. Cholecystectomy. ENCOUNTER: Subsequent ACUITY: 2 days PAIN SCORE: 0/10 LOCATION: Bilateral Abdomen FINDINGS: Preliminary film is unremarkable. Under fluoroscopic guidance a Gastrografin enema was performed with free flow of contrast to the ceca l tip. Pancolonic diverticulosis is present. No annular constricting lesions or obvious masses are identifie d on this unprepped exam. Contrast fills a normal-appearing appendix. Post evacuation radiographs revealed satisfactory evacuation of the water-soluble contrast. CONCLUSION: No evidence of obstruction. Pancolonic diverticulosis. Sven Langford MD on October 19, 2017 at 13:30 Board Certified Radiologist. This report was verified electronically.
--- NOTE | 2017-10-20 13:25 | EKG ---
Date Performed: 10/16/2017 Time Performed: 21:25:10 PTAGE: 87 years EKG: Sinus rhythm RIGHT BUNDLE BRANCH BLOCK LEFT ANTERIOR FASCICULAR BLOCK MODERATE VOLTAGE CRITERIA FOR LVH, CONSIDER NORMAL VARIANT POSSIBLE ANTEROSEPTAL MYOCARDIAL INFARCTION ABNORMAL ECG PREVIOUS TRACING : 09/25/2006 14.23 Since the prior tracing, there has been no significant varghese DOCTOR: Selvin Boss Interpretating Date/Time 10/20/2017 13:24:05
== END 2017-10-19 11:04 | disposition home or self-care (01) | DRG 390 ==
LOC: PHED 20:40 → PHEDA 23:51 → OBSVTOIN 10-17 00:07 → PH3A 10-17 00:37
PROVIDERS: ADMIT Hospitalist; ATTEND Hospitalist
DX: K56.7 Ileus, unspecified (principal); I10 Essential (primary) hypertension; I70.0 Atherosclerosis of aorta; I71.4 Abdominal aortic aneurysm, without rupture; K57.90 Diverticulosis of intestine, part unspecified, without perforation or abscess without bleeding; F41.9 Anxiety disorder, unspecified; Z85.038 Personal history of other malignant neoplasm of large intestine; Z87.891 Personal history of nicotine dependence; Z90.49 Acquired absence of other specified parts of digestive tract; Z92.21 Personal history of antineoplastic chemotherapy
CPT/HCPCS: 71275; 74019; 74174; 74270; 80048; 80053; 81001; 83605; 83690; 85025; 85379; 85610; 85730; 93005; 96374; 96375; C9113; J1644; J2270; J2405; J7030; Q9963; Q9967